=== PATIENT | male | born 1945 | race Hispanic/Latino ===

== ENCOUNTER → 2024-10-12 | Outpatient (REF) | payer MEDICARE ==
[~2024-10-12] MED LIST: IOPAMIDOL 370 MG/ML 100 ML INFUS..BTL INJ ONE; METOPROLOL TARTRATE 25 MG TAB ONE; METOPROLOL TARTRATE INJ 1 MG/ML VIAL ONE; NITROGLYCERIN 0.4 MG SUBL ONE; SODIUM CHLORIDE 0.9% 100 ML ONE
[2024-10-12 10:38] LABS: EST GLOMERULAR FILTRATION RATE 89.0 ML/MIN (>=60)
== END ==
LOC: CT 09:37
PROVIDERS: ATTEND Internal Medicine Cardiovascular Disease
DX: I25.118 Atherosclerotic heart disease of native coronary artery with other forms of angina pectoris (principal)
CPT/HCPCS: 36415; 75574; 82565; 84520; J7050; Q9967